=== PATIENT | male | born 1995 | race Caucasian/White ===

== ENCOUNTER 2021-07-26 12:35 | Emergency (ER) | payer OTHER ==
[2021-07-26 12:47] VITALS: BP 147/83; PULSE 80; TEMP 98.7; BMI 30.9
[2021-07-26] MEDS ORDERED: LIDOCAINE HCL 1%, 10 MG/ML (20ML VIAL) ONE (14:02)
[2021-07-26] MEDS ORDERED: LIDOCAINE HCL 1%, 10 MG/ML (50 mL VIAL) INF ONE (14:20)
[2021-07-26] MEDS ORDERED: IBUPROFEN 400 MG TABLET (FP) PO ONE ×2 (14:20→14:21)
== END 2021-07-26 14:27 | disposition home or self-care (01) ==
LOC: JERFT 12:35
DX: L60.0 Ingrowing nail (principal)
CPT/HCPCS: 99283-25

== ENCOUNTER 2021-07-28 12:33 | Emergency (ER) | payer OTHER ==
[2021-07-28 13:09] VITALS: BP 135/80; PULSE 104; TEMP 98.6; BMI 30.9
[2021-07-28] MEDS ORDERED: LIDOCAINE 5% TOPICAL PATCH TP ONE (13:37)
[2021-07-28] MEDS ORDERED: KETOROLAC TROMETHAMINE 30 MG/1 ML VIAL IM ONE (13:37)
[2021-07-28] MEDS ORDERED: KETOROLAC TROMETHAMINE 30 MG/1 ML VIAL ONE (13:40)
[2021-07-28] MEDS ORDERED: LIDOCAINE 5% TOPICAL PATCH ONE (13:40)
[2021-07-28] MEDS ORDERED: LIDOCAINE PATCH REMOVAL MC SCH (22:00)
== END 2021-07-28 14:21 | disposition home or self-care (01) ==
LOC: JERFT 12:33 → JER 12:33 → JERFT 14:21
PROC: 3E0233Z Introduction of Anti-inflammatory into Muscle, Percutaneous Approach (ICD-10-PCS; principal; 2021-07-28)
DX: M54.50 Low back pain, unspecified (principal)
CPT/HCPCS: 72100-TC-FY; 99284-25